=== PATIENT | female | born 1995 | race Caucasian/White ===

== ENCOUNTER 2020-02-22 11:17 | Outpatient (REF) | payer OTHER, SELFPAY | END 2020-02-22 11:18 | disposition home or self-care (01) | LOC: HO.LAB 11:17 | PROVIDERS: PCP Internal Medicine; Visit Provider Internal Medicine | DX: Z20.828 Contact with and (suspected) exposure to other viral communicable diseases (principal) | CPT/HCPCS: 87635 ==

== ENCOUNTER 2020-04-04 13:47 | Outpatient (REF) | payer OTHER, SELFPAY | END 2020-04-04 13:48 | disposition home or self-care (01) | LOC: HO.LAB 13:47 | PROVIDERS: Visit Provider Internal Medicine | DX: Z20.828 Contact with and (suspected) exposure to other viral communicable diseases (principal) | CPT/HCPCS: C9803; U0003 ==

== ENCOUNTER 2020-04-13 13:50 | Outpatient (REF) | payer OTHER, SELFPAY | END 2020-04-13 13:51 | disposition home or self-care (01) | LOC: HO.LAB 13:50 | PROVIDERS: PCP Internal Medicine; Visit Provider Internal Medicine | DX: Z20.828 Contact with and (suspected) exposure to other viral communicable diseases (principal) | CPT/HCPCS: C9803; U0003 ==

== ENCOUNTER 2020-04-24 10:07 | Outpatient (REF) | payer OTHER, SELFPAY ==
[2020-04-24 10:39] LABS: MANUAL DIFF FLAG NO
[2020-04-24 10:49] LABS: Basophils Absolute Auto 0.1 X10*3/uL (0.0-0.2); Basophils Percent Auto 1.2 % (0-2); Eosinophils Absolute Auto 0.1 X10*3/uL (0.0-0.4); Eosinophils Percent Auto 1.2 % (0-4); Hematocrit 37.9 % (37-47); Hemoglobin 12.8 g/dl (12.0-16.0); Imm Gran Abs Auto 0.01 X10*3/uL (0.00-0.03); Imm Gran Pct Auto 0.2 % (0.0-0.4); Lymphocytes Absolute Auto 1.5 X10*3/uL (1.2-4.9); Lymphocytes Percent Auto 36.3 % (20-40); Mean Corpuscular HGB Conc 33.8 g/dl (31.0-35.0); Mean Corpuscular Hemoglobin 30.7 pg (27.0-33.0); Mean Corpuscular Volume 90.9 fL (80-98); Mean Platelet Volume 10.5 fL (9.4-12.3); Monocytes Absolute Auto 0.4 X10*3/uL (0.1-1.2); Monocytes Percent Auto 8.3 % (2-11); Neutrophils Absolute Auto 2.2 X10*3/uL (2.0-8.3); Neutrophils Percent Auto 52.8 % (45-73); Platelet Count 248 X10*3/uL (160-400); Red Blood Count 4.17 X10*6/uL (4.20-5.50); Red Cell Distribution Width 11.9 % (11.0-16.0); White Blood Count 4.2 X10*3/uL (4.8-10.8)
[2020-04-24 11:08] LABS: Alanine Aminotransferase 22 U/L (0-31); Albumin Level 4.4 g/dL (3.5-5.0); Alkaline Phosphatase 53 U/L (39-117); Anion Gap 10 (12-20); Aspartate Amino Transferase 20 U/L (5-31); Blood Urea Nitrogen 12 mg/dL (9-16); C Reactive Protein 0.14 mg/dL (< or = 0.50); Calcium 9.5 mg/dL (8.4-10.2); Carbon Dioxide 26 mmol/L (22-29); Chloride 106 mmol/L (96-108); Estimated Glomerular Filt Rate > 60; Glucose Random 87 mg/dL (60-115); Potassium 4.4 mmol/l (3.3-5.1); Sodium 138 mmol/L (135-145); Total Protein 6.9 g/dL (6.5-8.0)
[2020-04-24 11:29] LABS: Vitamin D 25-OH Total 25.5 ng/mL (>30)
[2020-04-24 14:11] LABS: Glucose Urine UA NEG (NEG); Leukocyte Esterase Urine NEG (NEG); Nitrite Urine NEG (NEG); Specific Gravity - Urine 1.025 (1.005-1.025); Urine Blood NEG (NEG); Urine Ketones NEG (NEG); Urine Protein NEG (NEG-TRACE)
[2020-04-24 14:14] LABS: Appearance Urine CLEAR; Color Urine YELLOW
== END 2020-04-24 10:08 | disposition home or self-care (01) ==
LOC: HO.10HDL 10:07
PROVIDERS: PCP Internal Medicine; Visit Provider Internal Medicine
DX: N94.6 Dysmenorrhea, unspecified (principal); M54.9 Dorsalgia, unspecified; N80.9 Endometriosis, unspecified; E55.9 Vitamin D deficiency, unspecified
CPT/HCPCS: 36415; 80053; 81003; 82306; 85025; 86140; 87086

== ENCOUNTER 2020-05-10 10:41 | Outpatient (REF) | payer OTHER, SELFPAY ==
--- NOTE | 2020-05-10 | US_ITS ---
EXAMINATION: US PELVIS ULTRASOUND CLINICAL INFORMATION: Dysmenorrhea, left pelvic pain. COMPARISON: Ultrasound abdomen 04/14/2013 TECHNIQUE: Ultrasound of the pelvis is performed using transabdominal transducer. Patient declined transvaginal imaging. FINDINGS: Uterus: The uterus appears retroverted and retroflexed. Uterine dimensions are 7.9 x 3.8 x 4.3 cm. The endometrial double wall thickness is normal for patient of reproductive age measuring 14 mm. No visible fibroid. Adnexa: Both ovaries are visualized. There is no adnexal mass. Some trace fluid is present central pelvis that adjacent to right ovary. No significant ascites. Right ovary measures 2.7 x 2.3 x 2.3 cm. Volume 7.5 mL. Left ovary measures 2.6 x 2.2 x 2.4 cm. Volume 7.2 mL. US/US pelvic complete IMPRESSION: 1. Retroverted and retroflexed uterus. No visible fibroid. 2. Trace pelvic fluid. No adnexal mass. 3. Transabdominal exam. Patient declined transvaginal imaging.
== END 2020-05-10 10:42 | disposition home or self-care (01) ==
LOC: HO.US 10:41
PROVIDERS: PCP Internal Medicine; Visit Provider Internal Medicine
DX: N94.6 Dysmenorrhea, unspecified (principal); R10.2 Pelvic and perineal pain
CPT/HCPCS: 76856

== ENCOUNTER 2020-05-16 09:04 | Outpatient (REF) | payer OTHER, SELFPAY ==
[2020-05-17 10:15] LABS: BV Int Neg Control Negative (Negative); BV Int Pos Control Positive (Positive)
[2020-05-19 08:47] LABS: C. trachomatis RNA TMA NOT DETECTED (NOT DETECTED); N. gonorrhoeae RNA TMA NOT DETECTED (NOT DETECTED)
== END 2020-05-16 09:05 | disposition home or self-care (01) ==
LOC: HO.LAB 09:04
PROVIDERS: PCP Internal Medicine; Visit Provider Advanced Practice Midwife
DX: Z12.4 Encounter for screening for malignant neoplasm of cervix (principal); R10.2 Pelvic and perineal pain; N94.6 Dysmenorrhea, unspecified; Z20.2 Contact with and (suspected) exposure to infections with a predominantly sexual mode of transmission
CPT/HCPCS: 87480; 87491; 87510; 87591; 87660; 88142

== ENCOUNTER → 2020-05-22 11:11 | Outpatient (BNVA) | payer OTHER, SELFPAY | PROVIDERS: PCP Internal Medicine; Visit Provider Advanced Practice Midwife | DX: Z76.89 Persons encountering health services in other specified circumstances (principal) ==

== ENCOUNTER 2020-05-30 11:19 | Outpatient (REF) | payer OTHER, SELFPAY | END 2020-05-30 11:20 | disposition home or self-care (01) | LOC: HO.LAB 11:19 | PROVIDERS: Visit Provider Internal Medicine | DX: Z20.822 Contact with and (suspected) exposure to COVID-19 (principal) | CPT/HCPCS: 36415; C9803; U0003 ==

== ENCOUNTER 2020-07-20 14:41 | Outpatient (REF) | payer OTHER, SELFPAY | END 2020-07-20 14:42 | disposition home or self-care (01) | LOC: HO.LAB 14:41 | PROVIDERS: Visit Provider Internal Medicine | DX: Z20.822 Contact with and (suspected) exposure to COVID-19 (principal) | CPT/HCPCS: 36415; C9803; U0003; U0005 ==

== ENCOUNTER 2021-04-18 14:56 | Outpatient (REF) | payer OTHER, SELFPAY ==
[2021-04-18 15:11] LABS: MANUAL DIFF FLAG NO
[2021-04-18 16:01] LABS: Basophils Absolute Auto 0.1 X10*3/uL (0.0-0.2); Basophils Percent Auto 0.6 % (0-2); Eosinophils Absolute Auto 0.1 X10*3/uL (0.0-0.4); Eosinophils Percent Auto 0.9 % (0-4); Hematocrit 39.2 % (37.0-47.0); Hemoglobin 13.2 g/dl (12.0-16.0); Imm Gran Abs Auto 0.04 X10*3/uL (0.00-0.03); Imm Gran Pct Auto 0.5 % (0.0-0.4); Lymphocytes Absolute Auto 2.3 X10*3/uL (1.2-4.9); Lymphocytes Percent Auto 26.3 % (20-40); Mean Corpuscular HGB Conc 33.7 g/dl (31.0-35.0); Mean Corpuscular Hemoglobin 30.1 pg (27.0-33.0); Mean Corpuscular Volume 89.3 fL (80.0-98.0); Mean Platelet Volume 10.4 fL (9.4-12.3); Monocytes Absolute Auto 0.4 X10*3/uL (0.1-1.2); Monocytes Percent Auto 5.1 % (2-11); Neutrophils Absolute Auto 5.7 x10*3/uL (2.0-8.3); Neutrophils Percent Auto 66.6 % (45-73); Platelet Count 281 X10*3/uL (160-400); Red Blood Count 4.39 X10*6/uL (4.20-5.50); Red Cell Distribution Width 11.9 % (11.0-16.0); White Blood Count 8.6 X10*3/uL (4.8-10.8)
[2021-04-18 16:26] LABS: Alanine Aminotransferase 19 U/L (0-31); Albumin Level 4.6 g/dL (3.5-5.0); Alkaline Phosphatase 57 U/L (39-117); Anion Gap 12 (12-20); Aspartate Amino Transferase 21 U/L (5-31); Bilirubin Total 0.8 mg/dL (0.0-1.0); Blood Urea Nitrogen 15 mg/dL (9-16); C Reactive Protein 0.05 mg/dL (< or = 0.50); Calcium 9.7 mg/dL (8.4-10.2); Carbon Dioxide 23 mmol/L (22-29); Chloride 104 mmol/L (96-108); Estimated Glomerular Filt Rate > 60; Glucose Random 83 mg/dL (60-115); Potassium 4.2 mmol/L (3.3-5.1); Sodium 135 mmol/L (135-145); Total Protein 7.4 g/dL (6.5-8.0)
== END 2021-04-18 14:57 | disposition home or self-care (01) ==
LOC: HO.LAB 14:56
PROVIDERS: PCP Internal Medicine; Visit Provider Internal Medicine
DX: R13.10 Dysphagia, unspecified (principal); Z86.2 Personal history of diseases of the blood and blood-forming organs and certain disorders involving the immune mechanism
CPT/HCPCS: 36415; 80053; 85025; 86140

== ENCOUNTER 2021-05-14 15:41 | Outpatient (REF) | payer OTHER, SELFPAY ==
[2021-05-14 16:34] LABS: Influenza A PCR NEGATIVE (Negative); Influenza B PCR NEGATIVE (Negative); Resp Syncy Virus RNA Qual PCR NEGATIVE (Negative); SARS COV2 PCR INHOUSE POSITIVE (Negative)
== END 2021-05-14 15:42 | disposition home or self-care (01) ==
LOC: HO.LNP 15:41
PROVIDERS: Family Medicine; Visit Provider Internal Medicine
DX: Z20.822 Contact with and (suspected) exposure to COVID-19 (principal); R05.9 Cough, unspecified
CPT/HCPCS: 0241U

== ENCOUNTER 2021-07-30 11:10 | Outpatient (REF) | payer OTHER, SELFPAY ==
[2021-07-30 12:05] LABS: Influenza A PCR POSITIVE (Negative); Influenza B PCR NEGATIVE (Negative); Resp Syncy Virus RNA Qual PCR NEGATIVE (Negative); SARS COV2 PCR INHOUSE NEGATIVE (Negative)
== END 2021-07-30 11:11 | disposition home or self-care (01) ==
LOC: HO.LNP 11:10
PROVIDERS: Visit Provider Internal Medicine
DX: R52 Pain, unspecified (principal); R51.9 Headache, unspecified; J02.9 Acute pharyngitis, unspecified; Z20.822 Contact with and (suspected) exposure to COVID-19
CPT/HCPCS: 0241U

== ENCOUNTER 2022-09-17 12:36 | Outpatient (REF) | payer OTHER, SELFPAY | END 2022-09-17 12:37 | disposition home or self-care (01) | LOC: HO.10HDL 12:36 | PROVIDERS: Visit Provider Internal Medicine | DX: S81.802D Unspecified open wound, left lower leg, subsequent encounter (principal) | CPT/HCPCS: 87070; 87077; 87186; 87205 ==

== ENCOUNTER 2023-03-09 10:36 | Emergency (ER) | payer OTHER, SELFPAY ==
[2023-03-09 10:53] VITALS: BP 90/60; PULSE 78; RESP 16; TEMP 36.7; O2SAT 98; BMI 21.0
[2023-03-09] MEDS: Ondansetron ODT 4 MG TAB.RAPDIS TRANSLINGU (10:58)
[2023-03-09 11:14] LABS: MANUAL DIFF FLAG NO
[2023-03-09 11:17] LABS: Appearance Urine Clear; Basophils Percent Auto 0.3 % (0-2); Color Urine Yellow; Eosinophils Absolute Auto 0.1 X10*3/uL (0.0-0.4); Eosinophils Percent Auto 0.4 % (0-4); Glucose Urine UA Negative (Negative); Hematocrit 40.3 % (37.0-47.0); Hemoglobin 13.5 g/dl (12.0-16.0); Imm Gran Abs Auto 0.03 X10*3/uL (0.00-0.03); Imm Gran Pct Auto 0.2 % (0.0-0.4); Leukocyte Esterase Urine Negative (Negative); Lymphocytes Absolute Auto 1.4 X10*3/uL (1.2-4.9); Mean Corpuscular HGB Conc 33.5 g/dl (31.0-35.0); Mean Corpuscular Hemoglobin 30.6 pg (27.0-33.0); Mean Corpuscular Volume 91.4 fL (80.0-98.0); Mean Platelet Volume 10.3 fL (9.4-12.3); Monocytes Absolute Auto 0.7 X10*3/uL (0.1-1.2); Monocytes Percent Auto 5.4 % (2-11); Neutrophils Absolute Auto 10.4 x10*3/uL (2.0-8.3); Neutrophils Percent Auto 82.7 % (45-73); Nitrite Urine Negative (Negative); PH 8.5 (5.0-9.0); Platelet Count 245 X10*3/uL (160-400); Red Blood Count 4.41 X10*6/uL (4.20-5.50); Red Cell Distribution Width 11.7 % (11.0-16.0); Urine Blood Negative (Negative); Urine Ketones Negative (Negative); Urine Protein Negative (Neg-Trace); White Blood Count 12.6 X10*3/uL (4.8-10.8)
[2023-03-09 11:18] LABS: UPreg QC Valid YES; Urine Pregnancy NEGATIVE (NEGATIVE)
[2023-03-09 11:29] LABS: Anion Gap 10 (12-20); Blood Urea Nitrogen 8 mg/dL (9-16); Calcium 9.7 mg/dL (8.4-10.2); Carbon Dioxide 26 mmol/L (22-29); Chloride 105 mmol/L (96-108); Creatinine Clr Calc Pharmacy 104.4; Estimated Glomerular Filt Rate > 60; Glucose Random 98 mg/dL (60-115); Potassium 4.1 mmol/L (3.3-5.1); Sodium 137 mmol/L (135-145)
== END 2023-03-09 21:25 | disposition left against medical advice (07) ==
PROVIDERS: Emergency Provider Emergency Medicine; PCP Internal Medicine
DX: R11.2 Nausea with vomiting, unspecified (principal); R10.9 Unspecified abdominal pain; Z79.899 Other long term (current) drug therapy
CPT/HCPCS: 36415; 80048; 81003; 81025; 85025; 99282; 99283

== ENCOUNTER 2023-04-04 16:53 | Emergency (ER) | payer OTHER, SELFPAY ==
--- NOTE | ~2023-04-04 | CT_ITS ---
EXAMINATION: CT ABDOMEN AND PELVIS WITH CONTRAST CLINICAL INFORMATION: Lower abdominal pain, renal colic COMPARISON: Pelvic ultrasound 05/10/2020 TECHNIQUE: Multidetector volumetric images were obtained from the superior aspect of the liver through the pubic symphysis following administration 85 mL of Omnipaque 350 intravenous contrast. Sagittal and coronal reformatted images were obtained on the technologist's workstation. Oral contrast: No This CT examination was performed using dose optimization techniques as appropriate, variously including the following: *Automated exposure control *Adjustment of mA and/or kV according to patient size (this includes techniques or standardized protocols for targeted exams where dose is matched to indication/reason for exam; i.e. extremities or head) *Use of iterative reconstruction technique DLP: 373 mGy-cm FINDINGS: LUNG BASES: Unremarkable. ABDOMINAL AND PELVIC WALL: Unremarkable. LIVER AND BILIARY TREE: Unremarkable. GALLBLADDER: Unremarkable. PANCREAS: Unremarkable. SPLEEN: Unremarkable. ADRENAL GLANDS: Unremarkable. KIDNEYS AND URETERS: There is excreted contrast within the bilateral renal collecting systems limiting assessment for renal stone. With this limitation, no hydronephrosis or nephroureterolithiasis identified. GASTROINTESTINAL TRACT: Large and small bowel are unremarkable. The appendix is not identified with certainty however there are no right lower quadrant inflammatory changes to favor appendicitis. VASCULAR: Unremarkable. LYMPH NODES/PERITONEUM: No lymphadenopathy. FREE FLUID: Trace mildly complex free fluid in the pelvis, nonspecific but commonly seen in the setting of hemorrhagic ovarian cyst rupture. BLADDER: Unremarkable. PELVIC VISCERA: Uterus is retroverted in position. OSSEOUS STRUCTURES: Unremarkable. CT/CT abdomen pelvis w IV con IMPRESSION: * There is excreted contrast within the bilateral renal collecting systems limiting assessment for renal stone. With this limitation, no hydronephrosis or nephroureterolithiasis identified. * Trace mildly complex free fluid in the pelvis, nonspecific but commonly seen in the setting of hemorrhagic ovarian cyst rupture.
[2023-04-04 16:59] VITALS: PULSE 72; RESP 16; TEMP 36.6; O2SAT 100; BMI 22.6
[2023-04-04 17:23] LABS: MANUAL DIFF FLAG NO
[2023-04-04 17:26] LABS: Basophils Absolute Auto 0.1 X10*3/uL (0.0-0.2); Basophils Percent Auto 0.7 % (0-2); Eosinophils Absolute Auto 0.1 X10*3/uL (0.0-0.4); Hematocrit 37.9 % (37.0-47.0); Hemoglobin 12.7 g/dl (12.0-16.0); Imm Gran Abs Auto 0.01 X10*3/uL (0.00-0.03); Imm Gran Pct Auto 0.1 % (0.0-0.4); Lymphocytes Absolute Auto 2.6 X10*3/uL (1.2-4.9); Lymphocytes Percent Auto 28.6 % (20-40); Mean Corpuscular HGB Conc 33.5 g/dl (31.0-35.0); Mean Corpuscular Volume 89.4 fL (80.0-98.0); Mean Platelet Volume 10.2 fL (9.4-12.3); Monocytes Absolute Auto 0.5 X10*3/uL (0.1-1.2); Neutrophils Absolute Auto 5.9 x10*3/uL (2.0-8.3); Neutrophils Percent Auto 64.6 % (45-73); Platelet Count 306 X10*3/uL (160-400); Red Blood Count 4.24 X10*6/uL (4.20-5.50); Red Cell Distribution Width 11.7 % (11.0-16.0); White Blood Count 9.2 X10*3/uL (4.8-10.8)
[2023-04-04 17:32] LABS: Prothrombin Time 12.5 SEC (11.1-13.3)
[2023-04-04 17:43] LABS: Appearance Urine Cloudy; Color Urine Yellow; Glucose Urine UA Negative (Negative); Leukocyte Esterase Urine Small (1+) (Negative); Nitrite Urine Negative (Negative); Specific Gravity - Urine 1.025 (1.005-1.025); UMIC TRIGGER UACC YES; Urine Blood Negative (Negative); Urine Ketones Negative (Negative); Urine Protein Trace mg/dL (Neg-Trace)
[2023-04-04 17:48] LABS: UPreg QC Valid YES; Urine Pregnancy NEGATIVE (NEGATIVE)
[2023-04-04 17:50] LABS: Anion Gap 13 (12-20); Blood Urea Nitrogen 17 mg/dL (9-16); Calcium 9.7 mg/dL (8.4-10.2); Carbon Dioxide 25 mmol/L (22-29); Chloride 105 mmol/L (96-108); Creatinine Clr Calc Pharmacy 76.9; Estimated Glomerular Filt Rate > 60; Glucose Random 148 mg/dL (60-115); Potassium 3.4 mmol/L (3.3-5.1); Sodium 140 mmol/L (135-145)
[2023-04-04 17:52] VITALS: BP 130/70; PULSE 54; O2SAT 96
[2023-04-04 18:04] VITALS: BP 101/59; PULSE 64; RESP 16; O2SAT 100
[2023-04-04 18:09] LABS: Bacteria Urine 1+ (None Seen); Hyaline Casts Urine 0-2 /LPF (0-2); RBC Urine 0-2 /HPF (0-2); UACC Culture Trigger YES; WBC Urine 0-5 /HPF (0-5)
[2023-04-04 19:05] VITALS: BP 105/58; PULSE 78; RESP 14; TEMP 37.1; O2SAT 99
[2023-04-04] MEDS: iohexoL 350 MG/ML 100 ML INFUS..BTL 85 ML IV (20:55)
--- NOTE | 2023-04-04 21:01 | ED_ITS ---
HPI - Abdominal Pain General Chief Complaint: Abdominal Pain Stated Complaint: LOWER ABD PAIN, N/V, PALE DIAPHRETIC, Time Seen by Provider: 04/04/23 19:17 Source: patient and family Mode of arrival: ambulatory History of Present Illness HPI narrative: 27-year-old female without significant past medical history of brought in by EMS after she experience left lower quadrant abdominal pain that began approximately 20 minutes prior to arrival and was associated with weakness, hot flashes and nausea and vomiting and the inability to urinate. Patient states she has never had a kidney stone before but her mother who is at bedside states that she has had them before and it looks like that is what happened. The time of my interview patient states that the pain has improved. Related Data Previous Rx's Medication Instructions Recorded medroxyprogesterone 150 mg/mL 150 mg IM [id number] #1 mL 05/22/20 intramuscular suspension (Depo-Provera) Allergies Allergy/AdvReac Type Severity Reaction Status Date / Time No Known Allergies Allergy Verified 05/22/20 11:12 Review of Systems Review of Systems Pertinent positives and negatives as stated in HPI PMFSH Past Medical History Source: nursing notes reviewed Surgical History H/O laparoscopy H/O endoscopy Hx of tonsillectomy Social History Social History Alcohol intake: current Alcohol intake frequency: a few times a month Smoked in Last 30 Days: No Use of substances other than those prescribed or required for medical reasons: No Advance Directives: No Advance Directives Information Provided: No Sexual orientation: Straight/Heterosexual Physical Exam ED Vital Signs: Vital Signs - 24 hr 04/04/23 16:59 04/04/23 18:04 04/04/23 19:05 Temperature 97.8 F 98.8 F Pulse Rate 72 64 78 Respiratory Rate 16 16 14 Blood Pressure 101/59 L 105/58 L Pulse Oximetry 100 100 99 Oxygen Delivery Method Room Air Room Air Room Air 04/04/23 21:53 Temperature 98.9 F Pulse Rate 90 Respiratory Rate 14 Blood Pressure 97/52 L Pulse Oximetry 97 Oxygen Delivery Method Room Air BMI result Body Mass Index 22.6 VITAL SIGNS: Reviewed. GENERAL: Well developed, well nourished, in no acute distress. HEAD: Normocephalic/atraumatic EYES: PERRLA, EOMI EARS: Ext canals without abnormality NOSE: Nares patent bilateral OROPHARYNX: no oral lesions noted, posterior pharynx clear NECK: Supple, no adenopathy LUNGS: Normal breath sounds. No adventitious sounds or accessory muscle use. SpO2<99> CARDIOVASCULAR: Regular rate and rhythm without noted murmurs ABDOMEN: Soft, tenderness at left flank/lower quadrant without rebound, non- distended with bowel sounds. MUSCULOSKELETAL: No tenderness, deformities, or effusions noted on gross inspection. EXTREMITIES: No cyanosis, clubbing or edema. SKIN: Inspection of the skin reveals no rashes NEUROLOGIC: Alert and oriented x 4. Strength and sensation to light touch were grossly intact x 4. Medical Decision Making Medical Decision Making MDM Narrative: 27-year-old female with history and clinical presentation, DDX: Renal colic, ruptured cyst, UTI, ectopic, , appendicitis, lower clinical suspicion for diverticulitis/SBO. I reviewed all investigations hematologic indices are negative for leukocytosis or left shift and there is no anemia or thrombocytopenia. On re-evaluation patient states she is feeling somewhat better. Coagulation studies are within normal limits. Chemistry indices do not demonstrate an COLLEEN and there is no electrolyte derangements. Urinalysis is a dirty sample and no evidence to suggest a urinary tract infection. urine is negative. CT scan findings in conjunction with clinical exam and history most consistent with ruptured hemorrhagic ovarian cyst. Patient received combination analgesics with good improvement in pain. She was given expectant symptoms to have a over the next 24-48 hours and encouraged to follow-up with primary care doctor. 2257: I did discuss the case with Dr. Zhu after obtaining a 2nd hemoglobin which demonstrates a slight drop in hemoglobin/hematocrit but patient remains hemodynamically stable and suspect that this is just reflective of the event that occurred. Dr. Zhu agrees no repeat H&H is indicated at this time and given the fact that patient's pain has significantly improved and she has been able to urinate that patient may be discharged. 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 Differential Diagnosis Differential Diagnoses: The differential diagnosis associated with the presentation includes Please see the discussion above Admission/Observation Consideration of admission/observation: Escalation of care including admission/observation considered Please see the discussion above Consult Healthcare Provider Management of the patient was discussed with: Counseling Psychologist Please see the discussion above Lab Data MDM Lab Attestation statement: I reviewed the patient's lab results. Please see the discussion above 04/04/23 22:18 04/04/23 17:18 Labs: Lab Results 04/04/23 04/04/23 04/04/23 Range/Units 17:18 17:37 22:18 WBC 9.2 (4.8-10.8) X10*3/uL RBC 4.24 (4.20-5.50) X10*6/uL Hgb 12.7 11.6 L (12.0-16.0) g/dl Hct 37.9 34.1 L (37.0-47.0) % MCV 89.4 (80.0-98.0) fL MCH 30.0 (27.0-33.0) pg MCHC 33.5 (31.0-35.0) g/dl RDW 11.7 (11.0-16.0) % Plt Count 306 (160-400) X10*3/uL MPV 10.2 (9.4-12.3) fL Immature Gran % (Auto) 0.1 (0.0-0.4) % Neut % (Auto) 64.6 (45-73) % Lymph % (Auto) 28.6 (20-40) % [place] % (Auto) 5.0 (2-11) % Eos % (Auto) 1.0 (0-4) % Baso % (Auto) 0.7 (0-2) % Lymph # (Auto) 2.6 (1.2-4.9) X10*3/uL [place] # (Auto) 0.5 (0.1-1.2) X10*3/uL Eos # (Auto) 0.1 (0.0-0.4) X10*3/uL Baso # (Auto) 0.1 (0.0-0.2) X10*3/uL Abs Immat Gran (auto) 0.01 (0.00-0.03) X10*3/uL Absolute Neuts (auto) 5.9 (2.0-8.3) x10*3/uL Absolute Nucleated RBC 0.000 (0.0-0.012) X10*3/uL Nucleated RBC % (auto) 0.0 (0.0-0.2) /100WBC PT 12.5 (11.1-13.3) SEC INR 1.0 (0.9-1.1) Sodium 140 (135-145) mmol/L Potassium 3.4 (3.3-5.1) mmol/L Chloride 105 (96-108) mmol/L Carbon Dioxide 25 (22-29) mmol/L Anion Gap 13 (12-20) BUN 17 H (9-16) mg/dL Creatinine 1.01 (0.5-1.4) mg/dL Estim Creat Clear Calc 76.9 Estimated GFR > 60 Random Glucose 148 H (60-115) mg/dL Calcium 9.7 (8.4-10.2) mg/dL Urine Color Yellow Urine Appearance Cloudy Urine pH 7.0 (5.0-9.0) Ur Specific [place] 1.025 (1.005-1.025) Urine Protein Trace (Neg-Trace) mg/dL Urine Glucose (UA) Negative (Negative) mg/dL Urine Ketones Negative (Negative) mg/dL Urine Blood Negative (Negative) Urine Nitrite Negative (Negative) Ur Leukocyte Esterase Small (1+) H (Negative) Urine RBC 0-2 (0-2) /HPF Urine WBC 0-5 (0-5) /HPF Ur Squamous Epith Cells 11-20 (0-2) /HPF Urine Bacteria 1+ (None Seen) Hyaline Casts 0-2 (0-2) /LPF Urine Test NEGATIVE (NEGATIVE) Radiology Impression Discussion of test interpretation with radiology: I have reviewed the radiologist's reading. Radiologist Impression: Please see the discussion above External Record Review External record reviewed: Outpatient record, Prior outpatient labs and Prior outpatient radiology Medications Administered Discontinued Medications Generic Name Dose Route Start Last Admin Trade Name Freq PRN Reason Stop Dose Admin Acetaminophen 975 mg 04/04/23 22:54 04/04/23 23:29 Acetaminophen 325 Mg Tablet PO 04/04/23 22:55 975 mg ONCE ONE Administration Ibuprofen 400 mg 04/04/23 22:54 04/04/23 23:29 Ibuprofen 400 Mg Tablet PO 04/04/23 22:55 400 mg ONCE ONE Administration Iohexol 85 ml 04/04/23 20:55 04/04/23 20:55 Iohexol 350 Mg/Ml 100 Ml Infus..Btl IV 04/04/23 20:56 85 ml ONCE ONE Administration Critical Care Time Critical Care Time Critical Care Time: Yes Total Critical Care Time: 30 Attestation: I personally attest to this time spent taking care of the patient. Discharge Plan Discharge Clinical Impression: Ovarian cyst rupture Patient Disposition: Home, Self-Care Instructions: Ovarian Cyst (ED) Additional Instructions: 1. Tylenol 1000 mg, orally, every 6 hours as needed for pain control. Do not exceed 4000 mg within 24 hours. 2. Ibuprofen 400 mg, orally with milk or food, every 6 hours as needed for pain control. I highly recommend that you take this medication with Tylenol for improved pain relief. 3. Consider the use of a heating pad for additional symptom relief. Return to the ER for any worsening symptoms. Prescriptions: No Action medroxyprogesterone [Depo-Provera] 150 mg/mL suspension 150 mg IM [id number] Qty: 1 3RF
[2023-04-04 21:53] VITALS: BP 97/52; PULSE 90; RESP 14; TEMP 37.2; O2SAT 97
[2023-04-04 22:23] LABS: Hematocrit 34.1 % (37.0-47.0); Hemoglobin 11.6 g/dl (12.0-16.0)
--- NOTE | 2023-04-04 22:57 | PM.GYNCN ---
IS SUPPORT ANALYST - CN: HPI Data of Consult Consult date: 04/04/23 Primary Care Provider: Unknown Physician Consult Narrative Narrative: I was consulted on Jose Luis Hernandez who is a 27 year old female presented emergency room by ambulance after she experiences a sudden left lower quadrant abdominal pain that began approximately 20 minutes prior to presentation associated with nausea and vomiting and the inability to urinate. The patient 's pain has improved by the time she arrived to the emergency room and was able to void without difficulty. Initial H&H in the emergency room was 12.7/37.9, repeated after 7 hours drop to 11.6/34.1. CT scan of pelvis at 09:00 p.m. showed trace complex fluid in the pelvis consistent with ruptured ovarian cyst. Urine analysis and urine test were both negative cc:: CC: OB [facility] Surgical History Surgical History H/O laparoscopy H/O endoscopy Hx of tonsillectomy Social History Social History Alcohol intake: current Alcohol intake frequency: a few times a month Smoked in Last 30 Days: No Use of substances other than those prescribed or required for medical reasons: No Advance Directives: No Advance Directives Information Provided: No Sexual orientation: Straight/Heterosexual Meds Allergies Allergy/AdvReac Type Severity Reaction Status Date / Time No Known Allergies Allergy Verified 05/22/20 11:12 IS SUPPORT ANALYST Physical Exam Vitals Vital signs: Temp Pulse Resp BP Pulse Ox O2 Del Method 98.9 F 90 14 97/52 L 97 Room Air 04/04/23 21:53 04/04/23 21:53 04/04/23 21:53 04/04/23 21:53 04/04/23 21:53 04/04/23 21:53 BMI result Body Mass Index 22.6 Additional Comments: Reported by Dr. Gill as the following: Soft, tenderness at left flank/lower quadrant without rebound, non-distended with bowel sounds. IS SUPPORT ANALYST - Results Labs 04/04/23 22:18 04/04/23 17:18 Labs: Short CBC 04/04/23 04/04/23 Range/Units 17:18 22:18 WBC 9.2 (4.8-10.8) X10*3/uL Hgb 12.7 11.6 L (12.0-16.0) g/dl Hct 37.9 34.1 L (37.0-47.0) % Plt Count 306 (160-400) X10*3/uL BMP 04/04/23 17:18 Sodium 140 Potassium 3.4 Chloride 105 Carbon Dioxide 25 BUN 17 H Creatinine 1.01 Calcium 9.7 Urine 04/04/23 Range/Units 17:37 Urine Color Yellow Urine Appearance Cloudy Urine pH 7.0 (5.0-9.0) Ur Specific [place] 1.025 (1.005-1.025) Urine Protein Trace (Neg-Trace) mg/dL Urine Glucose (UA) Negative (Negative) mg/dL Urine Test NEGATIVE (NEGATIVE) Imaging CT scan - pelvis: Radiologist's impression: ITS Impressions Abdomen/Pelvis CT 04/04/23 20:57 IMPRESSION: * There is excreted contrast within the bilateral renal collecting systems limiting assessment for renal stone. With this limitation, no hydronephrosis or nephroureterolithiasis identified. * Trace mildly complex free fluid in the pelvis, nonspecific but commonly seen in the setting of hemorrhagic ovarian cyst rupture. Assessment and Plan (1) Ruptured ovarian cyst: Status: Acute Plan Recommended the following to Dr. Gill: Make sure the patient is clinically stable prior to discharge and to follow-up in in the office 2 days. Instructions to be given to the patient to come back the emergency room in case of persistence or worsening of pelvic pain, nausea or vomiting, vaginal bleeding. I spent a total of 20 minutes reviewing the chart, communicating to the emergency room provider and documenting in the medical record.
[2023-04-04] MEDS: Ibuprofen 400 MG TABLET PO (23:29)
[2023-04-04] MEDS: Acetaminophen 325 MG TABLET 975 MG PO (23:29)
--- NOTE | 2023-04-04 23:37 | PC.NURSE ---
pt medicated according to mar. pt mother at bedside. disposition pending
[2023-04-04 23:43] VITALS: BP 90/60; PULSE 92; RESP 14; TEMP 37.4; O2SAT 95
--- NOTE | 2023-04-05 00:38 | PC.NURSE ---
pt denies pain at time of discharge. dr lorenzo aware of bp. pt utilized wheelchair at discharge because did not have shoes. pt mother at bedside. v removed at discharge. pt provided with discharge packet. pt verbalized understanding of discharge plan
== END 2023-04-05 00:41 | disposition home or self-care (01) ==
PROVIDERS: Emergency Provider Student in an Organized Health Care Education/Training Program
DX: N83.202 Unspecified ovarian cyst, left side (principal); R10.32 Left lower quadrant pain
CPT/HCPCS: 36415; 74177; 80048; 81001; 81025; 85014; 85018; 85025; 85610; 87086; 87088; 99284; Q9967

== ENCOUNTER → 2023-04-04 18:33 | Outpatient (BNV) | payer OTHER, SELFPAY | PROVIDERS: Emergency Provider Student in an Organized Health Care Education/Training Program; Visit Provider Obstetrics & Gynecology | DX: N83.209 Unspecified ovarian cyst, unspecified side (principal) | CPT/HCPCS: 99283 ==

== ENCOUNTER 2023-04-14 09:25 | Outpatient (REF) | payer OTHER, SELFPAY ==
[2023-04-14 16:32] LABS: CT PCR NOT DETECTED (Not Detect.); NG PCR NOT DETECTED (Not Detect.)
== END 2023-04-14 09:26 | disposition home or self-care (01) ==
LOC: HO.LNP 09:25
PROVIDERS: Visit Provider Obstetrics & Gynecology
DX: N83.209 Unspecified ovarian cyst, unspecified side (principal); Z20.2 Contact with and (suspected) exposure to infections with a predominantly sexual mode of transmission
CPT/HCPCS: 0353U; 81025

== ENCOUNTER 2023-04-14 09:25 | Outpatient (AMB) | payer OTHER, SELFPAY ==
--- NOTE | 2023-04-14 10:13 | A.OFFVIS_ITS ---
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 The patient went to the emergency room 10 days ago with pelvic pain was diagnosed with a ruptured ovarian cyst. The following workup was done: H&H on arrival was 12.7/37.9 repeated after 7 hours was 11.6/34.1. UPT was negative CT scan of abdomen pelvis showed the following: IMPRESSION: * There is excreted contrast within the bilateral renal collecting systems limiting assessment for renal stone. With this limitation, no hydronephrosis or nephroureterolithiasis identified. * Trace mildly complex free fluid in the pelvis, nonspecific but commonly seen in the setting of hemorrhagic ovarian cyst rupture. Since then, the patient has been doing well with no pelvic pain PFSH Surgical History H/O laparoscopy H/O endoscopy Hx of tonsillectomy Alcohol intake: current Alcohol intake frequency: a few times a month Sexual orientation: Straight/Heterosexual Female Reproductive History Menstrual Age of Menarche: 13 Date of last menstrual period: 04/04/23 Review of Systems Const All systems reviewed & are unremarkable except as noted in HPI and below Physical Exam Vital Signs: Last Vital Signs BP 90/62 04/14/23 10:15 BMI result Body Mass Index 22.1 General: Yes no CVA tenderness External Female Exam: normal external appearance and normal appearance of the urethra Speculum Exam - Vagina: normal appearance of the vagina, normal palpation, no lesions and no masses Speculum Exam - Cervix: normal appearance of the cervix, normal palpation, no lesions, no masses and nontender Bimanual exam- vagina & uterus: normal bimanual exam, normal palpation, uterine size normal, normal palpation, uterine shape normal, No Cervical tenderness present and non-tender Bimanual Exam- Adnexa, other: normal adnexae Back/Spine/Pelvis Back: no CVA tenderness Assessment & Plan Assessment & Plan (1) Ruptured ovarian cyst: Code(s): N83.209 - Unspecified ovarian cyst, unspecified side Plan: UPT done in the office was negative. GC/chlamydia were collected. Will repeat CBC . Instructions given the patient to call in case of temperature of 100.4 degrees, recurrence of her pelvic pain or heavy vaginal bleeding. Otherwise follow-up in the office for annual exam the coming few weeks. Coding Level of Care Code Est Pt Level 3 (23084) Diagnoses Ruptured ovarian cyst N83.209
[2023-04-14 10:15] VITALS: BP 90/62; BMI 22.1
== END 2023-04-14 10:57 | disposition home or self-care (01) ==
LOC: HO.HWS 09:25
PROVIDERS: Visit Provider Obstetrics & Gynecology
DX: Z32.02 Encounter for pregnancy test, result negative (principal); N83.209 Unspecified ovarian cyst, unspecified side
CPT/HCPCS: 99213

== ENCOUNTER 2023-05-26 10:14 | Outpatient (AMB) | payer OTHER, SELFPAY ==
--- NOTE | 2023-05-26 10:18 | A.OFFVIS_ITS ---
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 Doing well with no concerns. She tries to eat healthy and stays active with exercise. Regular monthly menses 3d, takes Naprosyn for cramping. Currently is sexually active same sex partner. She reports a vaginal odor. GC chlamydia negative in March 2023. At that time she was seen for ruptured ovarian cyst. Denies family history of breast, ovarian or colon cancer. Last pap smear 2019, negative. PFSH Surgical History H/O laparoscopy H/O endoscopy Hx of tonsillectomy Social History (Updated 05/26/23 @ 10:40 by Carmen Porter CNM) Alcohol intake: current Alcohol intake frequency: a few times a month Sexual orientation: Lesbian/[place]/Homosexual Female Reproductive History Menstrual Age of Menarche: 13 Duration of menses: <3 days Date of last menstrual period: 05/25/23 control method: none Date of last pap smear: 05/17/20 (negative) History of abnormal pap smear: No Review of Systems Const All systems reviewed & are unremarkable except as noted in HPI and below Reports as per HPI Eyes Reports no additional complaints ENT Reports no additional complaints Card Reports no additional complaints Resp Reports no additional complaints GI Reports as per HPI and Reports no additional complaints Reports as per HPI Musc Reports no additional complaints Skin/Breast Reports as per HPI Neuro Reports no additional complaints Psych Reports no additional complaints Endo Reports no additional complaints Anthony/Lymph Reports no additional complaints Aller/Immun Reports no additional complaints Physical Exam Vital Signs: Last Vital Signs BP 100/60 05/26/23 10:25 BMI result Body Mass Index 23.3 Const General: cooperative, healthy appearing, no acute distress, well developed and alert Orientation/consciousness: patient oriented x3 HEENT Head: Yes normal to inspection Eyes General: appearance normal, both eyes and all related structures Neck Neck: Yes normal visual inspection Thyroid: Thyroid normal Chest Chest palpation & inspection: normal inspection of the chest and other (no puckering, dimpling, peau de orange, retraction, discharge, masses) Breast/axilla inspection: normal inspection of the breasts Breast/axilla palpation: normal palpation of the breasts Resp Effort & Inspection: normal respiratory effort GI Inspection: Yes normal to inspection Palpation (GI): Soft to palpation Rectal Exam - Female: deferred Other: Tense with exam unable to relax despite coaching General: Yes bladder normal to palpation External Female Exam: normal external appearance and normal appearance of the urethra Speculum Exam - Vagina: normal appearance of the vagina, normal palpation, normal vaginal discharge and vaginal bleeding (Heavy bleeding) Speculum Exam - Cervix: normal appearance of the cervix and normal palpation Bimanual exam- vagina & uterus: normal bimanual exam, normal palpation, uterine size normal, bladder normal to palpation, normal palpation and non-tender Bimanual Exam- Adnexa, other: no masses OB/external & speculum: vaginal bleeding (Heavy bleeding) Skin General skin exam: no rashes or lesions noted Rashes: no rashes Neuro General: patient oriented x3 Cognition (Neuro): normal cognition Extrem General: Yes normal to inspection Psych Attitude: cooperative Thought process: Normal thought process present Assessment & Plan Assessment & Plan (1) Encounter for well woman exam with routine gynecological exam: Code(s): Z01.419 - Encounter for gynecological examination (general) (routine) without abnormal findings Plan Discussed: Current recommendations for pap smears per ASCCP guidelines. Breast awareness and periodic breast exams. Maintain a healthy lifestyle including a well balanced diet and routine exercise. Return for Pap once menses is completed. Consider pelvic floor therapy, sex therapist for concerns, she confided with her difficulties with initimacy, Information on PT, provided brochure. She denies any previous trauma or abuse. All of her questions and concerns were addressed to the best of my ability. RTO in one year for annual seamer panty hose examination. This note is constructed using voice recognition software. While every effort has been made to ensure accuracy, land development project manager errors may have been included. Orders: Orders Bacterial Vaginosis Panel Today Z20.2 - Contact with and (suspected) exposure to infections with a predominantly sexual mode of transmission Hepatitis B Core Antibody Today Z20.2 - Contact with and (suspected) exposure to infections with a predominantly sexual mode of transmission Syphilis Screen Today Z20.2 - Contact with and (suspected) exposure to infections with a predominantly sexual mode of transmission HIV Ab/Ag Today Z20.2 - Contact with and (suspected) exposure to infections with a predominantly sexual mode of transmission Hepatitis C Antibody Today Z20.2 - Contact with and (suspected) exposure to infections with a predominantly sexual mode of transmission Coding Level of Care Code New Pt Prev Care 18-39yr([id number] Diagnoses Encounter for well woman exam with routine gynecological exam Z01.419
[2023-05-26 10:25] VITALS: BP 100/60; BMI 23.3
== END 2023-05-26 11:04 | disposition home or self-care (01) ==
LOC: HO.HWS 10:14
PROVIDERS: Visit Provider Advanced Practice Midwife
DX: Z01.419 Encounter for gynecological examination (general) (routine) without abnormal findings (principal)
CPT/HCPCS: 99385

== ENCOUNTER 2023-05-26 10:14 | Outpatient (REF) | payer OTHER, SELFPAY ==
[2023-05-27 09:53] LABS: BV Int Neg Control Negative (Negative); BV Int Pos Control Positive (Positive)
== END 2023-05-26 10:15 | disposition home or self-care (01) ==
LOC: HO.LAB 10:14
PROVIDERS: Visit Provider Advanced Practice Midwife
DX: Z01.419 Encounter for gynecological examination (general) (routine) without abnormal findings (principal); Z20.2 Contact with and (suspected) exposure to infections with a predominantly sexual mode of transmission
CPT/HCPCS: 87480; 87510; 87660; 99385

== ENCOUNTER 2023-07-30 08:57 | Outpatient (REF) | payer OTHER, SELFPAY | END 2023-07-30 08:58 | disposition home or self-care (01) | LOC: HO.LNP 08:57 | PROVIDERS: Visit Provider Advanced Practice Midwife | DX: Z01.419 Encounter for gynecological examination (general) (routine) without abnormal findings (principal); N92.0 Excessive and frequent menstruation with regular cycle | CPT/HCPCS: 88142; 99212 ==

== ENCOUNTER 2023-07-30 08:57 | Outpatient (AMB) | payer OTHER, SELFPAY ==
--- NOTE | 2023-07-30 09:00 | A.OFFVIS_ITS ---
Intake Vital Signs 07/30/23 09:01 Height 5 ft 5 in Weight 140 lb BMI 23.3 BP 104/64 Intake Visit Reasons: pap only Circuitry Negative Inspector: Circuitry Negative Inspector Present (Sandy) Allergies No Known Allergies Allergy (Verified 07/30/23 09:01) Is last menstrual period known: Yes Last menstrual period: 07/17/23 HPI HPI Comments History of Present Illness Details Patient is here today for a Pap screening only due to having heavy menstrual bleeding at her annual exam in May. She has no concerns denies any vaginal symptoms. Female only partners and no risk factors are STD exposure. FORMERLY [facility], [facility] Surgical History H/O laparoscopy H/O endoscopy Hx of tonsillectomy Social History (Updated 05/26/23 @ 10:40 by Carmen Porter CNM) Alcohol intake: current Alcohol intake frequency: a few times a month Sexual orientation: Lesbian/Gonzales/Homosexual Female Reproductive History Menstrual Age of Menarche: 13 Date of last menstrual period: 07/17/23 Date of last pap smear: 05/16/20 (neg) Review of Systems Const All systems reviewed & are unremarkable except as noted in HPI and below Physical Exam Vital Signs: Last Vital Signs BP 104/64 07/30/23 09:01 BMI result Body Mass Index 23.3 Const General: cooperative, healthy appearing and no acute distress Orientation/consciousness: patient oriented x3 GI Inspection: Yes normal to inspection Palpation (GI): Soft to palpation and Other GI palpation findings present (Nontender) Rectal Exam - Female: visual inspection normal General: Yes bladder normal to palpation External Female Exam: normal appearance of the urethra Speculum Exam - Vagina: normal appearance of the vagina, normal palpation and normal vaginal discharge Speculum Exam - Cervix: normal appearance of the cervix and normal palpation Bimanual exam- vagina & uterus: normal bimanual exam, normal palpation, uterine size normal, bladder normal to palpation, normal palpation, uterine shape normal and non-tender Bimanual Exam- Adnexa, other: normal adnexae Neuro General: patient oriented x3 Assessment & Plan Assessment & Plan (1) Encounter for Papanicolaou smear for cervical cancer screening: Code(s): Z12.4 - Encounter for screening for malignant neoplasm of cervix Plan Pap screening today. Follow up for annual exam or for any concerns sooner if needed p.r.n. This note is constructed using voice recognition software. While every effort has been made to ensure accuracy, preschool disability teacher errors may have been included. Coding Level of Care Code Est Pt Level 3 (96057) Diagnoses Encounter for Papanicolaou smear for cervical cancer screening Z12.4
[2023-07-30 09:01] VITALS: BP 104/64; BMI 23.3
== END 2023-07-30 09:28 | disposition home or self-care (01) ==
PROVIDERS: Visit Provider Advanced Practice Midwife
DX: Z12.4 Encounter for screening for malignant neoplasm of cervix (principal)
CPT/HCPCS: 99213

== ENCOUNTER 2023-10-03 10:08 | Emergency (ER) | payer OTHER, SELFPAY ==
--- NOTE | ~2023-10-03 | US_ITS ---
EXAMINATION: US PELVIS CLINICAL INFORMATION: Left-sided pelvic pain. Evaluate for cyst/torsion. LMP 10/02/2023. COMPARISON: CT abdomen/pelvis dated 04/04/2023. TECHNIQUE: Ultrasound of the pelvis is performed using a transabdominal transducer along with Doppler. Patient declined transvaginal imaging. FINDINGS: Uterus: The uterus is retroverted and retroflexed and measures 9.3 x 3.7 x 3.7 cm. The double wall endometrial thickness is 4 mm. The uterus is smooth in contour and has normal myometrial echogenicity. No visible fibroid. Adnexa: Both ovaries are visualized. Venous flow seen within the bilateral ovaries. Arterial flow seen within the left ovary. Left ovary difficult to visualize arterial flow. There is no ovarian torsion. There is no pelvic ascites or fluid collection. Right ovary measures 3.6 x 1.5 x 3.2 cm for a volume of 9.1 mL. Left ovary measures 4.3 x 3.0 x 2.6 cm for a volume of 17.5 mL. Left ovarian corpus luteum versus hemorrhagic cyst measuring approximately 1.4 cm. No significant pelvic free fluid. US/US pelvic complete IMPRESSION: 1. Left ovarian corpus luteum versus hemorrhagic cyst measuring 1.4 cm. 2. Otherwise, unremarkable examination. 3. No evidence of ovarian torsion.
[2023-10-03 10:33] VITALS: BP 121/85; PULSE 81; RESP 18; TEMP 36.3; O2SAT 100; BMI 23.3
[2023-10-03] MEDS: Ondansetron ODT 4 MG TAB.RAPDIS TRANSLINGU (10:39)
[2023-10-03 11:14] LABS: MANUAL DIFF FLAG NO
[2023-10-03 11:18] LABS: UPreg QC Valid YES; Urine Pregnancy NEGATIVE (NEGATIVE)
[2023-10-03 11:19] LABS: Appearance Urine Clear; Color Urine Yellow; Glucose Urine UA Negative (Negative); Leukocyte Esterase Urine Negative (Negative); Nitrite Urine Negative (Negative); PH 8.5 (5.0-9.0); Specific Gravity - Urine 1.025 (1.005-1.025); UMIC TRIGGER UACC YES; Urine Blood Moderate (2+) (Negative); Urine Ketones Negative (Negative); Urine Protein Trace mg/dL (Neg-Trace)
[2023-10-03 11:21] LABS: Bacteria Urine None Seen (None Seen); Hyaline Casts Urine 0-2 /LPF (0-2); RBC Urine >20 /HPF (0-2); Squamous Epithelial Cell Urine 0-2 /HPF (0-2); WBC Urine 0-5 /HPF (0-5)
[2023-10-03 11:24] LABS: Basophils Absolute Auto 0.1 X10*3/uL (0.0-0.2); Basophils Percent Auto 0.5 % (0-2); Eosinophils Percent Auto 0.2 % (0-4); Hematocrit 37.2 % (37.0-47.0); Hemoglobin 12.9 g/dl (12.0-16.0); Imm Gran Abs Auto 0.04 X10*3/uL (0.00-0.03); Imm Gran Pct Auto 0.3 % (0.0-0.4); Lymphocytes Absolute Auto 1.1 X10*3/uL (1.2-4.9); Lymphocytes Percent Auto 8.5 % (20-40); Mean Corpuscular HGB Conc 34.7 g/dl (31.0-35.0); Mean Corpuscular Hemoglobin 31.5 pg (27.0-33.0); Mean Platelet Volume 9.8 fL (9.4-12.3); Monocytes Absolute Auto 0.6 X10*3/uL (0.1-1.2); Monocytes Percent Auto 4.7 % (2-11); Neutrophils Absolute Auto 11.1 x10*3/uL (2.0-8.3); Neutrophils Percent Auto 85.8 % (45-73); Platelet Count 291 X10*3/uL (160-400); Red Blood Count 4.09 X10*6/uL (4.20-5.50); Red Cell Distribution Width 11.9 % (11.0-16.0); White Blood Count 12.9 X10*3/uL (4.8-10.8)
--- NOTE | 2023-10-03 11:39 | ED.ABDPAIN ---
HPI - Abdominal Pain General Chief Complaint: Abdominal Pain Stated Complaint: abd pain Related Data Allergies Allergy/AdvReac Type Severity Reaction Status Date / Time No Known Allergies Allergy Verified 10/03/23 10:35 [facility] Past Medical History Surgical History H/O laparoscopy H/O endoscopy Hx of tonsillectomy Social History Social History (Updated 05/26/23 @ 10:40 by Carmen Porter CNM) Alcohol intake: current Alcohol intake frequency: a few times a month Advance Directives: No Advance Directives Information Provided: Yes Do you have a plan to hurt others: No Plan Sexual orientation: Lesbian/Gonzales/Homosexual Physical Exam ED Vital Signs: Vital Signs - 24 hr 10/03/23 10:33 Temperature 97.3 F Pulse Rate 81 Respiratory Rate 18 Blood Pressure 121/85 Pulse Oximetry 100 Oxygen Delivery Method Room Air BMI result Body Mass Index 23.3 Course Course Course Narrative: This is rapid medical exam. Deferred additional HPI, ROS, PE to primary provider. 28yo female with history ovarian cysts here with complaints of left sided pelvic pain/cramping, diarrhea/vomiting which began today. Currently on menses which began last night. Denies heavy bleeding. Denies no recent sexual intercourse (has been >2 months). Denies concern for . Not currently on control. Received zofran during initial triage. Nausea/vomiting now improved. will give ibuprofen WIll need labs, UA, urine preg, pelvic US -Osman Bauer AUDIOVISUAL AIDS TECHNICIAN Medical Decision Making Lab Data 10/03/23 11:07 10/03/23 11:07 Labs: Lab Results 10/03/23 10/03/23 Range/Units 11:07 11:11 WBC 12.9 H (4.8-10.8) X10*3/uL RBC 4.09 L (4.20-5.50) X10*6/uL Hgb 12.9 (12.0-16.0) g/dl Hct 37.2 (37.0-47.0) % MCV 91.0 (80.0-98.0) fL MCH 31.5 (27.0-33.0) pg MCHC 34.7 (31.0-35.0) g/dl RDW 11.9 (11.0-16.0) % Plt Count 291 (160-400) X10*3/uL MPV 9.8 (9.4-12.3) fL Immature Gran % (Auto) 0.3 (0.0-0.4) % Neut % (Auto) 85.8 H (45-73) % Lymph % (Auto) 8.5 L (20-40) % [place] % (Auto) 4.7 (2-11) % Eos % (Auto) 0.2 (0-4) % Baso % (Auto) 0.5 (0-2) % Lymph # (Auto) 1.1 L (1.2-4.9) X10*3/uL [place] # (Auto) 0.6 (0.1-1.2) X10*3/uL Eos # (Auto) 0.0 (0.0-0.4) X10*3/uL Baso # (Auto) 0.1 (0.0-0.2) X10*3/uL Abs Immat Gran (auto) 0.04 H (0.00-0.03) X10*3/uL Absolute Neuts (auto) 11.1 H (2.0-8.3) x10*3/uL Absolute Nucleated RBC 0.000 (0.0-0.012) X10*3/uL Nucleated RBC % (auto) 0.0 (0.0-0.2) /100WBC Sodium 142 (135-145) mmol/L Potassium 4.4 (3.3-5.1) mmol/L Chloride 110 H (96-108) mmol/L Carbon Dioxide 19 L (22-29) mmol/L Anion Gap 17 (12-20) BUN 14 (9-16) mg/dL Creatinine 0.84 (0.5-1.4) mg/dL Estim Creat Clear Calc 88.1 Estimated GFR > 60 Random Glucose 110 (60-115) mg/dL Calcium 9.5 (8.4-10.2) mg/dL Total Bilirubin 0.3 (0.0-1.0) mg/dL AST 54 H (5-31) U/L ALT 47 H (0-31) U/L Alkaline Phosphatase 70 (39-117) U/L Total Protein 7.5 (6.5-8.0) g/dL Albumin 4.4 (3.5-5.0) g/dL Lipase 12 (8-78) U/L Urine Color Yellow Urine Appearance Clear Urine pH 8.5 (5.0-9.0) Ur Specific [place] 1.025 (1.005-1.025) Urine Protein Trace (Neg-Trace) mg/dL Urine Glucose (UA) Negative (Negative) mg/dL Urine Ketones Negative (Negative) mg/dL Urine Blood Moderate (2+) H (Negative) Urine Nitrite Negative (Negative) Ur Leukocyte Esterase Negative (Negative) Urine RBC >20 H (0-2) /HPF Urine WBC 0-5 (0-5) /HPF Ur Squamous Epith Cells 0-2 (0-2) /HPF Urine Bacteria None Seen (None Seen) Hyaline Casts 0-2 (0-2) /LPF Urine Test NEGATIVE (NEGATIVE) Medications Administered Discontinued Medications Generic Name Dose Route Start Last Admin Trade Name Freq PRN Reason Stop Dose Admin Ibuprofen 600 mg 10/03/23 11:41 10/03/23 11:42 Ibuprofen 600 Mg Tablet PO 10/03/23 11:42 600 mg ONCE ONE Administration Ondansetron HCl 4 mg 10/03/23 10:37 10/03/23 10:39 Ondansetron Odt 4 Mg Tab.Rapdis TRANSLINGU 10/03/23 10:38 4 mg ONCE ONE Administration Discharge Plan Discharge Clinical Impression: Abdominal pain Patient Disposition: Left W/O Completing Treatment Interventions: LWBS Worksheet Last Done: 10/03/23 16:45 Discharge Date/Time: 10/03/23 16:45
[2023-10-03] MEDS: Ibuprofen 600 MG TABLET PO (11:42)
[2023-10-03 11:45] LABS: Alanine Aminotransferase 47 U/L (0-31); Albumin Level 4.4 g/dL (3.5-5.0); Alkaline Phosphatase 70 U/L (39-117); Anion Gap 17 (12-20); Aspartate Amino Transferase 54 U/L (5-31); Bilirubin Total 0.3 mg/dL (0.0-1.0); Calcium 9.5 mg/dL (8.4-10.2); Carbon Dioxide 19 mmol/L (22-29); Chloride 110 mmol/L (96-108); Creatinine Clr Calc Pharmacy 88.1; Estimated Glomerular Filt Rate > 60; Glucose Random 110 mg/dL (60-115); Lipase 12 U/L (8-78); Potassium 4.4 mmol/L (3.3-5.1); Sodium 142 mmol/L (135-145); Total Protein 7.5 g/dL (6.5-8.0)
[2023-10-03 12:01] LABS: Blood Urea Nitrogen 14 mg/dL (9-16)
== END 2023-10-03 16:45 | disposition left against medical advice (07) ==
PROVIDERS: Emergency Provider Emergency Medicine; PCP Internal Medicine
DX: R10.2 Pelvic and perineal pain (principal); R11.10 Vomiting, unspecified; R19.7 Diarrhea, unspecified; R10.9 Unspecified abdominal pain
CPT/HCPCS: 36415; 76856; 80053; 81001; 81025; 83690; 85025; 99283; 99284

== ENCOUNTER 2023-10-15 09:44 | Outpatient (AMB) | payer OTHER, SELFPAY ==
--- NOTE | 2023-10-15 09:48 | A.OFFVIS_ITS ---
Vital Signs 10/15/23 09:50 Height 5 ft 5 in Weight 140 lb BMI 23.3 Intake Visit Reasons: ER Follow up Intake Note: Ruptured cyst in February, and was having same pain 2 weeks ago. Ball Fringe Machine Operator Required: No Information Interpreted: non-clinical & clinical Painter Foreman: Painter Foreman Present (Micaela) Allergies No Known Allergies Allergy (Verified 10/15/23 09:52) Is last menstrual period known: Yes Last menstrual period: 10/03/23 Post menopausal: No HPI Comments Details: Patient is here today for a follow up emergency room visit on 10/03/2023 seen for abdominal pain nausea vomiting and diarrhea. History of ovarian cyst. She reports her pain has resolved. She denies any risk to , female partner only. She is interested in starting control due to her dysmenorrhea symptoms. She has no desire to have a future at this time. Her cycles are regular and normal volume lasting 3 days. She declines a pelvic exam today. FORMERLY [facility], [facility] Surgical History H/O laparoscopy H/O endoscopy Hx of tonsillectomy Family History (Updated 10/15/23 @ 09:58 by GEORGE Queen) Paternal Uncle Colon cancer Social History (Updated 10/15/23 @ 09:58 by GEORGE Queen) Alcohol intake: current Alcohol intake frequency: a few times a month Patient Tobacco Use Status: Current someday Tobacco user Tobacco use type: Cigarette Use of substances other than those prescribed or required for medical reasons: Yes Substance Use Type: Marijuana Sexual orientation: Lesbian/Gonzales/Homosexual Female Reproductive History Menstrual Age of Menarche: 13 Duration of menses: <3 days Date of last menstrual period: 10/03/23 control method: none Total pregnancies: 0 Date of last pap smear: 07/31/23 (negative) Review of Systems Const All systems reviewed & are unremarkable except as noted in HPI and below Endo Reports no additional complaints Physical Exam Vital Signs: BMI result Body Mass Index 23.3 Const General: cooperative, healthy appearing and no acute distress Psych Appearance: well kempt Attitude: cooperative Thought process: Normal thought process present Results AMB Urinalysis, Automated UA Leukoctes 0 Cyril/uL Last Edit by GEORGE Queen on 10/15/23 10:24 UA Nitrite Negative Last Edit by GEORGE Queen on 10/15/23 10:24 UA Urobilinogen 0 mg/dL Last Edit by GEORGE Queen on 10/15/23 10:24 UA Protein 0 mg/dL Last Edit by Micaela Valdez Victorina on 10/15/23 10:24 UA pH 6 Last Edit by Micaela Valdez Victorina on 10/15/23 10:24 UA Blood 0 Rj/uL Last Edit by Micaela Valdez Victorina on 10/15/23 10:24 UA Specific [place] 1.020 Last Edit by Micaela Valdez Victorina on 10/15/23 10: 24 UA Ketone Negative Last Edit by Micaela Valdez Victorina on 10/15/23 10:24 UA Bilirubin 0 mg/dL Last Edit by GEORGE Queen on 10/15/23 10:24 UA Glucose 0 mg/dL Last Edit by Micaela Valdez Victorina on 10/15/23 10:24 Results Reviewed Results Reviewed: Laboratory Last Values Urine pH (Auto) 6 10/15/23 10:24 Specific [place] (Auto) 1.020 10/15/23 10:24 Urine Protein (Auto) 0 mg/dL 10/15/23 10:24 Glucose (UA)(Auto) 0 mg/dL 10/15/23 10:24 Urine Ketones (Auto) Negative 10/15/23 10:24 Urine Blood (Auto) 0 Rj/uL 10/15/23 10:24 Urine Nitrite (Auto) Negative 10/15/23 10:24 Urine Bilirubin (Auto) 0 mg/dL 10/15/23 10:24 Urine Urobilinogen (Auto) 0 mg/dL 10/15/23 10:24 Leukocyte Esterase (Auto) 0 Cyril/uL 10/15/23 10:[address] [address] Ultrasound Report Signed Patient: Jose Luis Shahid MR#: [id number] : 1995 Acct:[id number] Age/Sex: 28 / F ADM Date: 05/18/24 Loc: HO.ED Attending Dr: Ordering Physician: Taryn Nash NP Date of Service: 10/03/23 Procedure(s): US pelvic complete Accession Number(s): [id number] cc: Dewayne Szymanski MD; Taryn Nash NP~ EXAMINATION: US PELVIS CLINICAL INFORMATION: Left-sided pelvic pain. Evaluate for cyst/torsion. LMP 10/02/2023. COMPARISON: CT abdomen/pelvis dated 04/04/2023. TECHNIQUE: Ultrasound of the pelvis is performed using a transabdominal transducer along with Doppler. Patient declined transvaginal imaging. FINDINGS: Uterus: The uterus is retroverted and retroflexed and measures 9.3 x 3.7 x 3.7 cm. The double wall endometrial thickness is 4 mm. The uterus is smooth in contour and has normal myometrial echogenicity. No visible fibroid. Adnexa: Both ovaries are visualized. Venous flow seen within the bilateral ovaries. Arterial flow seen within the left ovary. Left ovary difficult to visualize arterial flow. There is no ovarian torsion. There is no pelvic ascites or fluid collection. Right ovary measures 3.6 x 1.5 x 3.2 cm for a volume of 9.1 mL. Left ovary measures 4.3 x 3.0 x 2.6 cm for a volume of 17.5 mL. Left ovarian corpus luteum versus hemorrhagic cyst measuring approximately 1.4 cm. No significant pelvic free fluid. US/US pelvic complete IMPRESSION: 1. Left ovarian corpus luteum versus hemorrhagic cyst measuring 1.4 cm. 2. Otherwise, unremarkable examination. 3. No evidence of ovarian torsion. Dictated By: Judson Zapata MD Signed By: <Electronically signed by Judson Zapata MD in OV> 10/03/23 1531 DD/ 1249 TD/TT: Operations Executive: Assessment & Plan Assessment & Plan (1) Dysmenorrhea: Code(s): N94.6 - Dysmenorrhea, unspecified Category: Medical (2) control counseling: Code(s): Z30.09 - Encounter for other general counseling and advice on contraception Category: Medical Plan: (3) Encounter to discuss test results: Code(s): Z71.2 - Person consulting for explanation of examination or test findings Category: Medical Plan Discussed: Ultrasound findings from ED most likely consistent with corpus luteum cyst, no indication for follow up at this time. Depo Provera Use: Counseled regarding: risk/benefits, alternative options. Use-frequency, side effects including weight gain, acne, hair loss, mood changes, unpredictable blee ding, or no bleeding, bone loss which is often improved when stopping Depo Provera, but not always completely reversible. Start Depo in the first 5 days of the menstrual cycle, call when cycle starts to schedule the appointment. Rx to be sent to the pharmacy, then return to the office for a nurse visit for the Depo Provera, then every 12 weeks. Maintain a healthy lifestyle with a well balance diet including calcium and Vit D, along with regular weight bearing exercises to support good bone health. Orders: Orders AMB Urinalysis Automated Today R10.2 - Pelvic and perineal pain Coding Level of Care Code Est Pt Level 3 (82579) Diagnoses Dysmenorrhea N94.6 control counseling Z30.09 Encounter to discuss test results Z71.2
[2023-10-15 09:50] VITALS: BMI 23.3
== END 2023-10-15 10:31 | disposition home or self-care (01) ==
PROVIDERS: PCP Internal Medicine; Visit Provider Advanced Practice Midwife
DX: N94.6 Dysmenorrhea, unspecified (principal); Z30.09 Encounter for other general counseling and advice on contraception; Z71.2 Person consulting for explanation of examination or test findings; R10.2 Pelvic and perineal pain
CPT/HCPCS: 99213

== ENCOUNTER → 2023-10-15 09:44 | Outpatient (BNVA) | payer OTHER, SELFPAY | PROVIDERS: PCP Internal Medicine; Visit Provider Advanced Practice Midwife | DX: Z71.2 Person consulting for explanation of examination or test findings (principal); Z30.09 Encounter for other general counseling and advice on contraception; N94.6 Dysmenorrhea, unspecified | CPT/HCPCS: 81003; 99212 ==

== ENCOUNTER 2023-11-02 10:03 | Outpatient (AMB) | payer OTHER, SELFPAY ==
--- NOTE | 2023-11-02 10:15 | AM.OFFVISNUR ---
Intake Vital Signs 11/02/23 10:16 Height 5 ft 5 in Weight 63.673 kg BMI 23.4 Intake Visit Reasons: DEPO Allergies No Known Allergies Allergy (Verified 10/15/23 09:52) Nursing Note Jose Luis is here today for her 1st Depo-provera . She started her menses on Unoevh91/14/24. Pt aware to follow up in 12 weeks for her next inj. She is receiving the Depo-Provera for severe dysmenorrhea. Office Procedures Depo Questionnaire If YES to any of the following questions, please consult a provider. Date of last injection: 11/02/23 Date of last menstrual period: 10/30/23 Menstrual pattern since last injection has been: Normal Irregular bleeding?: No Breast lumps or other breast changes?: No Changes in weight or appetite?: No Depression or changes in mood?: Not Applicable Abnormal hair growth or loss?: Not Applicable Skin problems (rash, acne, discoloration)?: Not Applicable Pain at the injection site?: No Headaches?: Not Applicable Nervousness?: Not Applicable Abdominal pain or cramping?: Not Applicable Dizziness or nausea?: Not Applicable Fatigue or weakness?: Not Applicable Decrease in sexual drive?: Not Applicable Chest pain or shortness of breath?: Not Applicable Swelling in arms or legs?: Not Applicable Form completed by?: Preston Avalos LPN Office Meds Depo-Provera 150 mg/mL intramuscular syringe Performing Provider: Carmen Porter CNM [place] [facility] Administered by: Eva Avalos LPN on 11/02/23 10:16 Dose Route Admin Location Dispensed Lot Number Expiration Date [facility] Qualitative Executive Researcher 150 mg IM rt. deltoid 1 mL [id number] 03/17/25 36819-270-86 [employer] Coding Level of Care Code Established Pt Est Pt Level 1 (46720) Patient Type Established History Problem Focused Exam Problem Focused Medical Decision Making Straight Forward Time Spent (min) 20 Assessment & Plan Assessment & Plan Orders: Orders AMB Medroxyprogesterone Injection Patient Supplied Today N94.6 - Dysmenorrhea, unspecified Medications: New Depo-Provera (medroxyprogesterone) 150 mg IM ONCE 1 mL 0RF NS N94.6 - Dysmenorrhea, unspecified
[2023-11-02 10:16] VITALS: BMI 23.4
== END 2023-11-02 10:14 | disposition home or self-care (01) ==
PROVIDERS: PCP Internal Medicine; Visit Provider Advanced Practice Midwife
DX: N94.6 Dysmenorrhea, unspecified (principal)

== ENCOUNTER → 2023-11-02 10:03 | Outpatient (BNVA) | payer OTHER, SELFPAY | PROVIDERS: PCP Internal Medicine; Visit Provider Advanced Practice Midwife | DX: N94.6 Dysmenorrhea, unspecified (principal); Z30.42 Encounter for surveillance of injectable contraceptive | CPT/HCPCS: 96372; 99211; J1050 ==

== ENCOUNTER 2023-12-25 10:54 | Outpatient (AMB) | payer OTHER, SELFPAY ==
[2023-12-25 10:57] VITALS: BP 104/62; BMI 23.5
--- NOTE | 2023-12-25 10:57 | A.OFFVIS_ITS ---
Vital Signs 12/25/23 10:57 Height 5 ft 5 in Weight 141 lb BMI 23.5 BP 104/62 Intake Visit Reasons: BC consult Allergies No Known Allergies Allergy (Verified 12/25/23 10:57) Is last menstrual period known: Yes Last menstrual period: 12/15/23 HPI Comments Details: Patient is here today for a follow up on her Depo-Provera, initiated 2 months ago. She reports she bled last Thursday BTB to slightly heavier to present day. She also reports that her moods have been increased. She admits to having depression in the past for many years, and seasonal depression in the winter. She has a female only partner and is interested in egg storage in the future. Currently she desires not to have menstrual cycle or pain, history of endometriosis diagnosed laparoscopically in [place] at age 16. [facility] Medical History (Updated 12/25/23 @ 10:59 by GEORGE Tran) Endometriosis Surgical History (Updated 12/25/23 @ 11:12 by Carmen Porter CNM) H/O laparoscopy H/O endoscopy Hx of tonsillectomy Family History (Updated 10/15/23 @ 09:58 by GEORGE Queen) Paternal Uncle Colon cancer Social History (Updated 10/15/23 @ 09:58 by GEORGE Queen) Alcohol intake: current Alcohol intake frequency: a few times a month Patient Tobacco Use Status: Current someday Tobacco user Tobacco use type: Cigarette Substance Use Type: Marijuana Sexual orientation: Lesbian/Gonzales/Homosexual Female Reproductive History Menstrual Age of Menarche: 13 Date of last menstrual period: 12/15/23 control method: progesterone injection Review of Systems Const All systems reviewed & are unremarkable except as noted in HPI and below Endo Reports no additional complaints Physical Exam Vital Signs: Last Vital Signs BP 104/62 12/25/23 10:57 BMI result Body Mass Index 23.5 Const General: cooperative, healthy appearing and no acute distress Psych Appearance: well kempt Attitude: cooperative Thought process: Normal thought process present Assessment & Plan Assessment & Plan (1) Surveillance for Depo-Provera contraception: Code(s): Z30.42 - Encounter for surveillance of injectable contraceptive (2) Breakthrough bleeding on Depo-Provera: Code(s): N92.1 - Excessive and frequent menstruation with irregular cycle Plan Discussed: Common side effect of Depo with newly starting- breakthrough bleeding and should improve with time. If heavy or prolonged bleeding occurs to reach out to the office for sooner evaluation. Mood changes can occur with control. Role of good good health and exercise benefits. Eating a nutritious well-balanced diet, eliminating sugar processed foods, and any other sources that are not healthy. Encouraged sleep hygiene. Consider use of a probiotic if indicated. Use of seasonal affective disorder lighting in the winter time. Importance of calcium and vitamin-D, and encouraged regular cardio exercises daily if possible with long-term Depo use. Continue Depo-Provera use for now, monitor symptoms. Keep follow up annual exam appointment scheduled 06/06/2024. Will use infertility services when ready to harvest eggs, informed of local and distant services with an [facility]. All of her questions and concerns were addressed to the best of my ability and shared decision making. She is agreeable to the plan of care. This note is constructed using voice recognition software. While every effort has been made to ensure accuracy, foundry supervisor errors may have been included. Coding Level of Care Code Est Pt Level 3 (49251) Diagnoses Surveillance for Depo-Provera contraception Z30.42 Breakthrough bleeding on Depo-Provera N92.1
== END 2023-12-25 12:11 | disposition home or self-care (01) ==
PROVIDERS: PCP Internal Medicine; Visit Provider Advanced Practice Midwife
DX: Z30.42 Encounter for surveillance of injectable contraceptive (principal); N92.1 Excessive and frequent menstruation with irregular cycle
CPT/HCPCS: 99213

== ENCOUNTER → 2023-12-25 10:54 | Outpatient (BNVA) | payer OTHER, SELFPAY | PROVIDERS: PCP Internal Medicine; Visit Provider Advanced Practice Midwife | DX: N92.1 Excessive and frequent menstruation with irregular cycle (principal); F32.A Depression, unspecified; Z30.09 Encounter for other general counseling and advice on contraception | CPT/HCPCS: 99212 ==

== ENCOUNTER 2024-01-19 11:16 | Outpatient (AMB) | payer OTHER, SELFPAY ==
[2024-01-19 11:31] VITALS: BMI 23.6
--- NOTE | 2024-01-19 11:31 | AM.OFFVISNUR ---
Vital Signs 01/19/24 11:31 Height 5 ft 5 in Weight 64.41 kg BMI 23.6 Intake Visit Reasons: Depo Allergies No Known Allergies Allergy (Verified 12/25/23 10:57) Nursing Note Jose Luis is here today for her 2nd injection of Depo-provera. She was seen for bleeding on Depo-provera after her 1st inj, which has since resolved, and pt is very happy about it. Follow up in 12 wks for next inj. Office Procedures Depo Questionnaire If YES to any of the following questions, please consult a provider. Date of last injection: 11/02/23 Date of last gynecology exam: 07/30/23 Menstrual pattern since last injection has been: Heavy Irregular bleeding?: No Breast lumps or other breast changes?: No Changes in weight or appetite?: No Depression or changes in mood?: No Abnormal hair growth or loss?: No Skin problems (rash, acne, discoloration)?: No Pain at the injection site?: No Headaches?: No Nervousness?: No Abdominal pain or cramping?: No Dizziness or nausea?: No Fatigue or weakness?: No Decrease in sexual drive?: No Chest pain or shortness of breath?: No Swelling in arms or legs?: No Form completed by?: Preston Avalos LPN Office Meds Depo-Provera 150 mg/mL intramuscular syringe Performing Provider: Carmen Porter CNM Per[place] Location[place] [facility] Administered by: Eva Avalos LPN on 01/19/24 11:32 Dose Route Admin Location Dispensed Lot Number Expiration Date [facility] Utility Worker Film Processing 150 mg IM lt deltoid 1 mL [id number] 03/17/25 67143-063-94 [employer] Assessment & Plan Assessment & Plan Orders: Orders AMB Medroxyprogesterone Injection Patient Supplied Today Z30.42 - Encounter for surveillance of injectable contraceptive Medications: New Depo-Provera (medroxyprogesterone) 150 mg IM ONCE 1 mL 0RF NS Z30.42 - Encounter for surveillance of injectable contraceptive
== END 2024-01-19 11:32 | disposition home or self-care (01) ==
LOC: HO.HWS 11:16
PROVIDERS: PCP Internal Medicine; Visit Provider Advanced Practice Midwife
DX: Z30.42 Encounter for surveillance of injectable contraceptive (principal)

== ENCOUNTER → 2024-01-19 11:16 | Outpatient (BNVA) | payer OTHER, SELFPAY | PROVIDERS: PCP Internal Medicine; Visit Provider Advanced Practice Midwife | DX: Z30.42 Encounter for surveillance of injectable contraceptive (principal) | CPT/HCPCS: 96372; 99211; J1050 ==

== ENCOUNTER 2024-07-14 11:18 | Outpatient (AMB) | payer OTHER, SELFPAY ==
--- NOTE | 2024-07-14 11:23 | MHC.OFFVIS ---
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 She was on Depo-Provera but she stopped it because she did not like how it made her feel she was getting it because she was afraid of the recurrence of an ovarian cyst which ruptured last year and also she has a history of very painful periods in the past and in fact she had laparoscopically diagnosed endometriosis when she was a teenager in [place]. She is sexually active with a female partner but does not have too much penetration and in fact just experimented with tampons this summer when she was in the [place]. She found it a little challenging to pull out feeling very dry but she is probably going to try again.. She does not keep close track of her. But notes that it does come about in the middle of the month every month and sometimes she notes some cramping that she had reminded her of the ovarian cyst about a week after the period. Her last menstrual periods started on the 04 of July and the cramping that she noticed was about a week later this last period was exceptionally short at only 2 days. She does not have any other medical problems as far she knows. She says her sister had something hiv cts specialist then need to be frozen but she is not sure what it was in her mother had something that was described as precancerous in her breasts but she called her mother during this visit and clarify the history and says there was something in a lymph gland but they did not want to biopsy it or touch it and it has not changed at all in 10 year. She has talked with her partner about freezing there eggs for future fertility but do not have plans to do it now. [facility] Medical History (Updated 07/14/24 @ 12:40 by Maddie Iraheta CNM) Endometriosis Surgical History (Updated 07/14/24 @ 12:39 by Maddie Iraheta CNM) H/O laparoscopy H/O endoscopy Hx of tonsillectomy Family History Paternal Uncle Colon cancer Social History Alcohol intake: current Alcohol intake frequency: a few times a month Patient Tobacco Use Status: Current someday Tobacco user Tobacco use type: Cigarette Substance Use Type: Marijuana Sexual orientation: Lesbian/Gonzales/Homosexual Female Reproductive History Menstrual Age of Menarche: 13 Duration of menses: <3 days Date of last menstrual period: 07/02/24 control method: none Total pregnancies: 0 Date of last pap smear: 07/31/23 (negative) History of abnormal pap smear: No Physical Exam Vital Signs: Last Vital Signs BP 106/60 07/14/24 11:25 BMI result Body Mass Index 24.8 Const General: healthy appearing, comfortable, no acute distress, well developed and alert Nutritional Appearance: average body habitus Orientation/consciousness: patient oriented x3 Limitations: no limitations HEENT Head: Yes normocephalic Neck Neck: Yes normal visual inspection Chest Chest palpation & inspection: normal inspection of the chest Breast/axilla inspection: normal inspection of the breasts and normal inspection of the axillae Breast/axilla palpation: normal palpation of the breasts and normal palpation of the axillae Resp Effort & Inspection: normal respiratory effort GI Inspection: Yes normal to inspection, No Abdominal wall edema and No distended Palpation (GI): Soft to palpation and nontender Neuro General: patient oriented x3 Results Reviewed Results Reviewed: Name: Jose Luis Shahid Age/Sex: 27/F Attending: Carmen Porter CNM : 1995 Submitted by: Carmen Porter CNM Copies to: MR #: [id number] Status: DEP REF Collected: 07/30/23 Location: [facility] Received: 07/31/23 Interpretation Satisfactory for evaluation. Negative for intraepithelial lesion or malignancy. Clinical Information LMP: 07/17/23 Previous PAP test: 05/16/20, WNL Material Received ThinPrep-Cervical Electronically Signed By: VILMA Farooq (ASCP) 08/14/23 0654 The Pap Test is a screening procedure with the inherent possibility of both false negative and false positive results. Results should be interpreted in the context of historic and current clinical findings. Reliability of the Pap Test is enhanced by performing the test on a regular repetitive basis. Patient: Jose Luis Shahid Age/Sex: 27/F MR#: [id number] Page 1 of 1 [place] [id number] Ultrasound Report Signed Patient: Jose Luis Shahid MR#: [id number] : 1995 Acct:[id number] Age/Sex: 28 / F ADM Date: 10/03/23 Loc: .ED Attending Dr: Ordering Physician: Taryn Nash NP Date of Service: 10/03/23 Procedure(s): US pelvic complete Accession Number(s): [id number] cc: Dewayne Szymanski MD; Taryn Nash NP~ EXAMINATION: US PELVIS CLINICAL INFORMATION: Left-sided pelvic pain. Evaluate for cyst/torsion. LMP 10/02/2023. COMPARISON: CT abdomen/pelvis dated 04/04/2023. TECHNIQUE: Ultrasound of the pelvis is performed using a transabdominal transducer along with Doppler. Patient declined transvaginal imaging. FINDINGS: Uterus: The uterus is retroverted and retroflexed and measures 9.3 x 3.7 x 3.7 cm. The double wall endometrial thickness is 4 mm. The uterus is smooth in contour and has normal myometrial echogenicity. No visible fibroid. Adnexa: Both ovaries are visualized. Venous flow seen within the bilateral ovaries. Arterial flow seen within the left ovary. Left ovary difficult to visualize arterial flow. There is no ovarian torsion. There is no pelvic ascites or fluid collection. Right ovary measures 3.6 x 1.5 x 3.2 cm for a volume of 9.1 mL. Left ovary measures 4.3 x 3.0 x 2.6 cm for a volume of 17.5 mL. Left ovarian corpus luteum versus hemorrhagic cyst measuring approximately 1.4 cm. No significant pelvic free fluid. US/US pelvic complete IMPRESSION: 1. Left ovarian corpus luteum versus hemorrhagic cyst measuring 1.4 cm. 2. Otherwise, unremarkable examination. 3. No evidence of ovarian torsion. Dictated By: Judson Zapata MD Signed By: <Electronically signed by Judson Zapata MD in OV> 10/03/23 1531 DD/ 1249 Assessment & Plan Assessment & Plan (1) Dysmenorrhea: Code(s): N94.6 - Dysmenorrhea, unspecified Category: Medical (2) Breast mass, left: Code(s): N63.20 - Unspecified lump in the left breast, unspecified quadrant Category: Medical (3) Well woman exam (no gynecological exam): Code(s): Z00.00 - Encounter for general adult medical examination without abnormal findings Category: Medical (4) Family planning education, guidance, and counseling: Code(s): Z30.09 - Encounter for other general counseling and advice on contraception Category: Medical (5) H/O laparoscopy: Comment: Mile Luna age 16 Code(s): Z98.890 - Other specified postprocedural states Category: Surgical (6) Endometriosis: Code(s): N80.9 - Endometriosis, unspecified Category: Medical Plan -----Discussed in this visit the following: healthy balanced diet, regular and consistent exercise, getting recommended health screens, doing the best she can for her particular health concerns, kegel exercises, pap smear screening and followup recommendations, mammography screening and SBE, normal changes in cycles in her life stage--- . Discussed her history of the endometriosis the diagnosis and what was done to diagnosis and management offered she had been offered control pills but declined them at time and she did try the Depo-Provera last year after the ruptured ovarian cyst but she did not like how it made her feel and she decided to stop it and she actually feels better having gone off of it and she has done okay with her periods she uses Tylenol and heating pads for her periods . Discussed the normal menstrual cycle and how ovarian cysts can form only in a cycle however more often than not what women are experiencing are the normal cyclic changes if they are getting normal regular menses. Discussed what goes on in the normal cycle and how it can feel and the different sensations and symptoms that 1 can have that can inform her of where she is in her cycle. She was going to try to track of her cycles going forward and pay more attention to her cycles to empower herself. Discussed her previous mention of having her eggs frozen discussed that if 1 is thinking about anything like that consideration to doing it sooner rather than later and certainly if possible before age 35 would be optimal because our eggs do get older, a the so fertility goes down and risk of chromosomal anomalies can go up. Discussed that she would need to seek assistance at reproductive endocrinology. I also checked her breasts and did feel a irregular fibrous mass at approximately 01:00 o'clock left breast proximally 2-3 cm. She did call her mother during the visit and it sounded from what her mother told her that what ever was felt in her breast did not even warrant a biopsy and had not changed. I am ordering her a diagnostic mammogram for the left side and our ultrasound as well and also a breast surgery referral just to have the discussion about what is the appropriate follow-up. She will investigate family history little bit further as well Discussed what we normally do during the pelvic exam and what we are checking for. Also discussed tampon use and what can facilitate use and also the menstrual cup. RTC [address] referral and orders. Her primary care provider Dr. Szymanski is retiring so she is anticipating being sign to a new provider as per plans. Breast ultrasound and mammogram left breast Referral to breast surgery RTC 1 year Orders: Orders US breast LT complete Today N63.20 - Unspecified lump in the left breast, unspecified quadrant MM tomosynthesis diagnostic LT Today N63.20 - Unspecified lump in the left breast, unspecified quadrant, N80.9 - Endometriosis, unspecified, N94.6 - Dysmenorrhea, unspecified, Z00.00 - Encounter for general adult medical examination without abnormal findings, Z30.09 - Encounter for other general counseling and advice on contraception, Z98.890 - Other specified postprocedural states Referrals Breast Surgery Referral N63.20 - Unspecified lump in the left breast, unspecified quadrant Coding Level of Care Code Est Pt Prev Care 18-39y(37668) Diagnoses Dysmenorrhea N94.6 Breast mass, left N63.20 Well woman exam (no gynecological exam) Z00.00 Family planning education, guidance, and counseling Z30.09 H/O laparoscopy Z98.890 Endometriosis N80.9 Time Spent (min) 45 Comment Extra time spent discussing patient cycle, endometriosis and future fertility plan
[2024-07-14 11:25] VITALS: BP 106/60; BMI 24.8
== END 2024-07-14 12:59 | disposition home or self-care (01) ==
PROVIDERS: PCP Internal Medicine; Visit Provider Advanced Practice Midwife
DX: Z01.419 Encounter for gynecological examination (general) (routine) without abnormal findings (principal); N94.6 Dysmenorrhea, unspecified; N63.20 Unspecified lump in the left breast, unspecified quadrant; Z30.09 Encounter for other general counseling and advice on contraception; Z98.890 Other specified postprocedural states; N80.9 Endometriosis, unspecified
CPT/HCPCS: 99395; 99459

== ENCOUNTER → 2024-07-14 11:18 | Outpatient (BNVA) | payer OTHER, SELFPAY | PROVIDERS: PCP Internal Medicine; Visit Provider Advanced Practice Midwife | DX: Z01.411 Encounter for gynecological examination (general) (routine) with abnormal findings (principal); N63.21 Unspecified lump in the left breast, upper outer quadrant; N80.9 Endometriosis, unspecified | CPT/HCPCS: 99395; 99459 ==

== ENCOUNTER 2024-08-17 11:29 | Outpatient (REF) | payer OTHER, SELFPAY ==
--- NOTE | ~2024-08-17 | US_ITS ---
EXAMINATION: MM DIAGNOSTIC DIGITAL BREAST TOMOSYNTHESIS, BILATERAL Limited bilateral ultrasound. CLINICAL INFORMATION: Palpable left breast lump upper outer quadrant. COMPARISON: Mammography: Comparison is made with relevant prior exams. TECHNIQUE: Digital breast mammography with tomosynthesis is performed in both the craniocaudal and mediolateral oblique views along with computer-aided detection (CAD). FINDINGS: The breasts are extremely dense, which lowers the sensitivity of mammography (ACR BI-RADS breast composition Category d). Left: BB marker in the upper-outer breast without underlying abnormality. No suspicious masses calcifications or other abnormal findings. Targeted color Doppler ultrasound scanning from 1-4 o'clock in the area the patient's palpable lump demonstrates normal fibroglandular breast tissue. Right: Asymmetry superior breast middle to posterior depth on MLO view. No suspicious calcifications or other abnormal findings. Targeted color Doppler ultrasound in the right breast from 10-2 o'clock demonstrates normal fibroglandular breast tissue. The previously seen asymmetry likely just represented overlapping normal fibroglandular breast tissue in extremely dense breast tissue. Results are provided to the patient at time of visit by the technologist. US/US breast BI limited mamm only IMPRESSION: Left: No mammographic or sonographic abnormality to account for the patient's palpable lump. Recommend clinical evaluation and follow-up. Due to extremely dense breast tissue if clinical concern persists a breast MRI could be considered for further evaluation if clinically indicated. Breast MRI would need to be ordered by the patient's providing clinician. Right: No mammographic or sonographic abnormality. ASSESSMENT: BI-RADS BI-RADS 1 - Negative RECOMMENDATION: Mammo at 40 or earlier if clinically needed This patient's information was entered into a reminder system with a target due date for their next mammogram. Electronically signed by: Hoa Garnica DO 08/17/2024 12:37 PM EDT
== END 2024-08-17 11:30 | disposition home or self-care (01) ==
LOC: HO.MAMMO 11:29
PROVIDERS: PCP Internal Medicine; Visit Provider Advanced Practice Midwife
DX: N63.21 Unspecified lump in the left breast, upper outer quadrant (principal); N94.6 Dysmenorrhea, unspecified; N80.9 Endometriosis, unspecified
CPT/HCPCS: 76642; 77062; 77066

== ENCOUNTER 2024-10-13 10:46 | Outpatient (AMB) | payer OTHER, SELFPAY ==
[2024-10-13 10:54] VITALS: BP 104/66; PULSE 86; TEMP 37.3; O2SAT 98
--- NOTE | 2024-10-13 10:54 | MHC.OFFWIV ---
Intake Vital Signs 10/13/24 10:54 Height 5 ft 5 in BMI Reason not done Patient refused/unable BP 104/66 Blood Pressure Location Lt brachial Position Sitting Pulse 86 Pulse Source Pulse Oximeter Temp 99.2 F Temp Source Oral Pulse Oximetry (%) 98 Oxygen Delivery Method Room Air Intake Visit Reasons: EP-diarrhea, vomiting, body ache, fever Patient Tobacco Use Status: Current someday Tobacco user Accompanied by: Self / Same As Patient Allergies No Known Allergies Allergy (Verified 10/13/24 10:54) Do you need a note to return to daycare/school/sports/work: Yes HPI HPI Comments History of Present Illness Details This is a 29 year old female with a past medical history of endometriosis presenting for evaluation of nausea, vomiting, diarrhea, body aches and subjective fevers that she has had since Thursday. Patient states that her symptoms started with a headache on Thursday followed by chills, body aches and then nausea and vomiting on Thursday followed by diarrhea Thursday night. Patient has not vomited or had any episodes of diarrhea today. Patient denies having any dysuria, urinary frequency, dark or bloody stools. She has taken Tylenol and ibuprofen for management of her subjective fevers and myalgias. [facility] Medical History (Updated 10/13/24 @ 11:27 by Patito Booth PA-C) Endometriosis Surgical History (Updated 07/14/24 @ 12:39 by Maddie Iraheta CNM) H/O laparoscopy H/O endoscopy Hx of tonsillectomy Family History Paternal Uncle Colon cancer Social History Alcohol intake: current Alcohol intake frequency: a few times a month Patient Tobacco Use Status: Current someday Tobacco user Tobacco use type: Cigarette Substance Use Type: Marijuana Sexual orientation: Lesbian/Gonzales/Homosexual Female Reproductive History Menstrual Age of Menarche: 13 Review of Systems Const All systems reviewed & are unremarkable except as noted in HPI and below Reports no additional complaints, Reports chills, Reports fever(s) (subjective) and Reports headache(s) Eyes Reports no additional complaints ENT Reports no additional complaints and Reports headache(s) Card Reports no additional complaints and Denies chest pain Resp Denies chest congestion and Denies cough GI Denies abdominal pain, Reports diarrhea, Reports nausea, Reports vomiting and Denies hematemesis Reports no additional complaints and Denies dysuria Musc Reports no additional complaints and Reports myalgias Skin/Breast Reports system reviewed and no additional complaints, except as documented Neuro Reports no additional complaints and Reports headache(s) Psych Reports no additional complaints Endo Reports no additional complaints Anthony/Lymph Reports no additional complaints Aller/Immun Reports no additional complaints Physical Exam Vital Signs: Last Vital Signs BP 104/66 10/13/24 10:54 Const General: cooperative, healthy appearing, comfortable, no acute distress, well developed, alert, awake and Physically active; No acute distress Nutritional Appearance: well nourished Orientation/consciousness: patient oriented x3 Limitations: no limitations Resp Effort & Inspection: normal respiratory effort, no audible wheezes, no cough and not tachypneic Auscultation: clear to auscultation bilaterally Cardio Rate: regular rate Rhythm: regular rhythm GI Palpation (GI): Soft to palpation, nontender and no guarding Auscultation: normal bowel sounds General: Yes bladder normal to palpation and Yes no CVA tenderness Bimanual exam- vagina & uterus: bladder normal to palpation Back/Spine/Pelvis Back: no CVA tenderness Skin General skin exam: no rashes or lesions noted Neuro General: patient oriented x3 Psych Appearance: grossly normal Mental Status: mental status grossly normal Insight: Good insight present (Psych) Judgement: Good judgement present (Psych) Assessment & Plan Assessment & Plan (1) Nausea vomiting and diarrhea: Comment: Patient denies nausea at this time and has not vomited or had episodes of diarrhea since yesterday. Code(s): R11.2 - Nausea with vomiting, unspecified; R19.7 - Diarrhea, unspecified Plan: Increased clear fluids daily, immodium as needed if diarrhea persists. Coding Level of Care Code Est Pt Level 3 (64381) Diagnoses Nausea vomiting and diarrhea R11.2; R19.7 Time Spent (min) 20
== END 2024-10-13 11:19 | disposition home or self-care (01) ==
PROVIDERS: PCP Internal Medicine; Visit Provider Physician Assistant
DX: R11.2 Nausea with vomiting, unspecified (principal); R19.7 Diarrhea, unspecified

== ENCOUNTER → 2024-10-13 10:46 | Outpatient (BNVA) | payer OTHER, SELFPAY | PROVIDERS: PCP Internal Medicine; Visit Provider Physician Assistant ==